=== PATIENT | male | born 1955 | race Caucasian/White ===

== ENCOUNTER 2023-08-13 03:01 | Observation (INO) ==
[2023-08-13] MEDS ORDERED: Albuterol/Ipratropium NEB.SOL (2.5/0.5 MG) 3 ML NEB.SOLN INH ONE (03:05)
[2023-08-13] MEDS ORDERED: Lactated Ringers 1000 ml BAG 1,000 ML IV ONE (03:17)
[2023-08-13 03:20] LABS: ABS Basophils 0.1 10^3/uL (0.0-0.1); ABS Eosinophils 0.2 10^3/uL (0.0-0.5); ABS Lymphocytes 2.6 10^3/uL (1.0-4.8); ABS Monocytes 0.9 10^3/uL (0.0-1.1); ABS Nucleated RBC 0.02 10^3/ul; Eosinophil % 2.7 %; Hematocrit 50.8 % (38-53); Hemoglobin 16.7 g/dL (13.2-16.3); Lymphocyte % 29.4 %; Mean Corpuscular Hemoglobin 29.4 pg (27-33); Mean Corpuscular Hgb Conc 32.8 g/dL (31-36); Mean Corpuscular Volume 89.4 fL (80-97); Mean Platelet Volume 8.5 fL (7.5-11.2); Nucleated Red Blood Cells % 0.2 %/100WBC (0.0-0.8); Platelet Count 257 10^3/uL (150-450); Red Blood Count 5.68 10^6/uL (4.06-5.63); Red Cell Distribution Width 16.5 % (12-17); White Blood Count 8.7 10^3/uL (3.6-10.2)
[2023-08-13 03:37] LABS: Albumin 4.1 g/dL (3.2-5.2); Albumin/Globulin Ratio 1.3 (1-3); C Reactive Protein 10.94 mg/L (<8.01); Calcium 9.3 mg/dL (8.6-10.3); Creatinine, Serum 1.4 mg/dL (0.67-1.17); Globulin 3.2 g/dL (2-4); Magnesium 2.1 mg/dL (1.9-2.7); Potassium 4.2 mmol/L (3.5-5.0); Total Bilirubin 0.7 mg/dL (0.2-1.0); Total Protein 7.3 g/dL (6.4-8.9); eGFR CKD-EPI 54.4 (>60)
[2023-08-13 03:38] LABS: PCO2 Arterial 47 mmHg (35-45); PO2 Arterial 66 mmHg (80-100)
[2023-08-13] MEDS ORDERED: Albuterol/Ipratropium NEB.SOL (2.5/0.5 MG) 3 ML NEB.SOLN ONE (04:29)
[2023-08-13 05:36] LABS: Urine Appearance Clear; Urine Bilirubin Negative (Negative); Urine Blood Negative (Negative); Urine Color Yellow; Urine Glucose Negative (Negative); Urine Ketones Negative (Negative); Urine Nitrite Negative (Negative); Urine Protein 2+(100 mg/dL) (Negative); Urine Urobilinogen Negative (Negative)
[2023-08-13 05:45] LABS: Urine Benzodiazepine Screen None Detected (None Detect); Urine Cannabinoids Screen None Detected (None Detect); Urine Opiates Screen None Detected (None Detect)
[2023-08-13 05:46] LABS: Urine Bacteria Absent (Absent); Urine Red Blood Cell Trace(0-2/hpf) (Absent); Urine Squamous Epithelial Cell Present (Absent); Urine White Blood Cell Trace(0-5/hpf) (Absent)
[2023-08-13] MEDS ORDERED: Ondansetron 4 mg VIAL 2 MG/ML 2 ml VIAL IV PRN (06:28)
[2023-08-13] MEDS ORDERED: Carboxymethylcellulose/Glyceri 10 ML OPHTH.GEL lubricant eye gel BOTH EYES PRN (06:44)
[2023-08-13] MEDS ORDERED: Albuterol HFA INHALER 8 gm MDI INH PRN (06:44)
[2023-08-13 07:54] LABS: Phosphorus 4.9 mg/dL (2.5-5.0)
[2023-08-13] MEDS: SPIRIVA Respimat (tiotropium) 2.5 mcg/inh Inhaler INH SCH (08:44)
[2023-08-13] MEDS: Vitamin THERAPEUTIC TAB PO SCH (08:44)
[2023-08-13] MEDS: Mometasone/Formoter 200/5 MDI INH SCH ×2 (08:45→19:48)
[2023-08-13] MEDS: MAGNESIUM 250 MG PO SCH (08:51)
[2023-08-13] MEDS: CMC:OMEGA-3 FATTY ACID 1000 mg(NF) PO SCH (08:56)
[2023-08-13] MEDS ORDERED: Azelastine 0.1% Nasal (NF) 30 ML BTL BOTH NARES SCH (09:00)
[2023-08-13] MEDS ORDERED: NF:IPRATROPIUM BR (NF)0.06% NASAL 1 SPRAY BTL BOTH NARES SCH (09:00)
[2023-08-13] MEDS ORDERED: CMC:OMEGA-3 FATTY ACID 1000 mg(NF) PO SCH (09:00)
[2023-08-13] MEDS ORDERED: Piperacillin/Tazobac 3.375 BAG 3.375 GM/100 ML BAG IV ONE ×2 (10:52→13:59)
[2023-08-13] MEDS ORDERED: Zosyn per Pharmacy NOTE FOLLOW UP SCH (11:00)
[2023-08-13] MEDS ORDERED: cefTRIAXone 1 gm/50 mL D5W 1 GM/50 ML BAG IV SCH (14:00)
[2023-08-13] MEDS ORDERED: Azithromycin 500 mg/250 ml NS 500 MG/250 ML BAG IVPB SCH (14:00)
[2023-08-13 14:45] LABS: ABS Eosinophils 0.1 10^3/uL (0.0-0.5); ABS Lymphocytes 1.6 10^3/uL (1.0-4.8); ABS Monocytes 1.1 10^3/uL (0.0-1.1); ABS Nucleated RBC 0.02 10^3/ul; Eosinophil % 1.4 %; Hematocrit 47.2 % (38-53); Lymphocyte % 18.1 %; Mean Corpuscular Hemoglobin 29.9 pg (27-33); Mean Corpuscular Hgb Conc 33.8 g/dL (31-36); Mean Corpuscular Volume 88.5 fL (80-97); Mean Platelet Volume 8.4 fL (7.5-11.2); Nucleated Red Blood Cells % 0.2 %/100WBC (0.0-0.8); Platelet Count 237 10^3/uL (150-450); Red Blood Count 5.33 10^6/uL (4.06-5.63); Red Cell Distribution Width 16.5 % (12-17); White Blood Count 8.9 10^3/uL (3.6-10.2)
[2023-08-13 15:00] LABS: Calcium 9.6 mg/dL (8.6-10.3); Creatinine, Serum 1.29 mg/dL (0.67-1.17); Potassium 3.9 mmol/L (3.5-5.0)
[2023-08-13 16:29] LABS: High Sensitivity Troponin 1 Hr 24 pg/mL (<20)
[2023-08-13] MEDS ORDERED: ZOSYN 3.375 GM Q8H per EXTENDED INFUSION IV SCH (16:30)
[2023-08-13] MEDS ORDERED: Dextrose 50% Syringe 50 ml 25 GM/50 ML SYRINGE IV PUSH PRN (17:00)
[2023-08-13] MEDS: ZOSYN 3.375 GM Q8H per EXTENDED INFUSION IV SCH (17:47)
[2023-08-13] MEDS ORDERED: Simvastatin 20 mg TAB (NF) PO SCH (21:00)
[2023-08-14] MEDS: ZOSYN 3.375 GM Q8H per EXTENDED INFUSION IV SCH ×2 (00:51→11:33)
[2023-08-14 05:51] LABS: PCO2 Arterial 42 mmHg (35-45); PO2 Arterial 70 mmHg (80-100)
[2023-08-14 07:27] LABS: ABS Basophils 0.1 10^3/uL (0.0-0.1); ABS Eosinophils 0.2 10^3/uL (0.0-0.5); ABS Lymphocytes 1.5 10^3/uL (1.0-4.8); ABS Monocytes 0.8 10^3/uL (0.0-1.1); ABS Neutrophils 5.8 10^3/uL (1.5-7.6); ABS Nucleated RBC 0.02 10^3/ul; Eosinophil % 2.4 %; Hematocrit 46.6 % (38-53); Hemoglobin 15.5 g/dL (13.2-16.3); Lymphocyte % 18.2 %; Mean Corpuscular Hemoglobin 29.6 pg (27-33); Mean Corpuscular Hgb Conc 33.2 g/dL (31-36); Mean Corpuscular Volume 89.1 fL (80-97); Mean Platelet Volume 8.7 fL (7.5-11.2); Nucleated Red Blood Cells % 0.2 %/100WBC (0.0-0.8); Platelet Count 221 10^3/uL (150-450); Red Blood Count 5.23 10^6/uL (4.06-5.63); Red Cell Distribution Width 16.6 % (12-17); White Blood Count 8.4 10^3/uL (3.6-10.2)
[2023-08-14] MEDS: MAGNESIUM 250 MG PO SCH (07:39)
[2023-08-14 07:43] LABS: Calcium 9.2 mg/dL (8.6-10.3); Creatinine, Serum 1.33 mg/dL (0.67-1.17); Potassium 3.9 mmol/L (3.5-5.0); eGFR CKD-EPI 57.9 (>60)
[2023-08-14] MEDS: CMC:OMEGA-3 FATTY ACID 1000 mg(NF) PO SCH (08:07)
[2023-08-14] MEDS: Vitamin THERAPEUTIC TAB PO SCH (08:08)
[2023-08-14] MEDS: Mometasone/Formoter 200/5 MDI INH SCH (08:11)
[2023-08-14] MEDS: SPIRIVA Respimat (tiotropium) 2.5 mcg/inh Inhaler INH SCH (08:12)
[2023-08-14] MEDS ORDERED: Regadenoson 0.4 MG/5 ML SYRINGE ONE (08:33)
[2023-08-14] MEDS ORDERED: Aminophylline 25 MG/ML VIAL ONE (08:33)
[2023-08-14] MEDS ORDERED: LORazepam 2 mg VIAL 1 ml ONE (08:51)
[2023-08-14] MEDS ORDERED: NS 0.9% 1000 ml BAG 1,000 ML IV SCH ×2 (09:00→10:45)
[2023-08-14] MEDS ORDERED: Sulfur Hexaflouride MICROSPHR 25 MG VIAL ONE (09:08)
[2023-08-14 13:38] VITALS: BP 143/76
== END 2023-08-14 15:00 | disposition left against medical advice (07) ==
LOC: EDHOLD 03:01 → ED 03:01 → SUATTDRO 06:28 → MED 14:41
PROVIDERS: ADMIT Student in an Organized Health Care Education/Training Program; ATTEND Internal Medicine

== ENCOUNTER 2023-09-18 09:51 | Inpatient (IN) ==
[~2023-09-18 09:51] MED LIST: EPINEPHrine SYR 0.1MG/ML 10 ml SYRINGE IV ONE; Magnesium Sulfate 2 gm BAG 2 GM/50 ML ONE; Norepinephrine IV 1 MG/ML 4 ML VIAL ONE
[2023-09-18 10:10] LABS: Hematocrit 49.8 % (38-53); Hemoglobin 15.1 g/dL (13.2-16.3); Mean Corpuscular Hgb Conc 30.3 g/dL (31-36); Mean Platelet Volume 9.4 fL (7.5-11.2); Platelet Count 205 10^3/uL (150-450); Red Blood Count 5.03 10^6/uL (4.06-5.63); White Blood Count 12.2 10^3/uL (3.6-10.2)
[2023-09-18] MEDS ORDERED: Norepinephrine 4 MG/250mL D5W 4,000 MCG/250 ML BAG IV ONE (10:10)
[2023-09-18 10:21] LABS: PO2 Arterial 89 mmHg (80-100)
[2023-09-18 10:26] LABS: PCO2 Arterial > 100 mmHg (35-45)
[2023-09-18] MEDS ORDERED: Sodium Bicarbonate 8.4% SYR 50 ml SYRINGE ONE (10:26)
[2023-09-18 10:30] LABS: Albumin 3.6 g/dL (3.2-5.2); Albumin/Globulin Ratio 1.4 (1-3); Calcium 11.5 mg/dL (8.6-10.3); Creatinine, Serum 1.46 mg/dL (0.67-1.17); Globulin 2.6 g/dL (2-4); Total Bilirubin 0.5 mg/dL (0.2-1.0); Total Protein 6.2 g/dL (6.4-8.9); eGFR CKD-EPI 51.7 (>60)
[2023-09-18] MEDS ORDERED: Propofol 10 mg/ml 100 ML BTL 1,000 MG/100 ML BTL ONE (10:37)
[2023-09-18] MEDS ORDERED: Iodixanol (CONTRAST) 320 MG/ML 100 ML SDV IV ONE (11:19)
[2023-09-18] MEDS ORDERED: Lactated Ringers 1000 ml BAG 1,000 ML IV ONE ×2 (11:20→11:21)
[2023-09-18] MEDS ORDERED: Piperacillin/Tazobac 3.375 BAG 3.375 GM/100 ML BAG IV ONE (11:20)
[2023-09-18 11:21] LABS: ABS Basophils 0.1 10^3/uL (0.0-0.1); ABS Eosinophils 0.2 10^3/uL (0.0-0.5); ABS Lymphocytes 6.3 10^3/uL (1.0-4.8); ABS Monocytes 0.9 10^3/uL (0.0-1.1); ABS Neutrophils 4.8 10^3/uL (1.5-7.6); ABS Nucleated RBC 0.09 10^3/ul; Eosinophil % 1.5 %; Lymphocyte % 51.3 %; Nucleated Red Blood Cells % 0.8 %/100WBC (0.0-0.8)
[2023-09-18 11:22] LABS: RBC Morphology Normal (Normal)
[2023-09-18 11:24] LABS: Urine Appearance Cloudy; Urine Bilirubin Negative (Negative); Urine Blood 1+ (Negative); Urine Color Yellow; Urine Glucose 3+(>=500 mg/dL) (Negative); Urine Ketones Negative (Negative); Urine Nitrite Negative (Negative); Urine Protein 3+(>=500 mg/dL) (Negative); Urine Specific Gravity 1.008 (1.002-1.030); Urine Urobilinogen Negative (Negative)
[2023-09-18] MEDS: Norepinephrine 16MCG/ML IVPREMIX 4,000 MCG/250 ML D5W BAG IV SCH ×2 (12:15→15:37)
[2023-09-18] MEDS: Propofol 10 mg/ml 100 ML BTL 1,000 MG/100 ML BTL IV SCH ×4 (12:30→23:43)
[2023-09-18 12:45] LABS: PCO2 Arterial 58 mmHg (35-45); PO2 Arterial 82 mmHg (80-100)
[2023-09-18 12:46] LABS: ABS Basophils 0.1 10^3/uL (0.0-0.1); ABS Eosinophils 0.1 10^3/uL (0.0-0.5); ABS Lymphocytes 1.6 10^3/uL (1.0-4.8); ABS Monocytes 0.6 10^3/uL (0.0-1.1); ABS Nucleated RBC 0.02 10^3/ul; Eosinophil % 0.4 %; Hematocrit 46.2 % (38-53); Hemoglobin 14.9 g/dL (13.2-16.3); Lymphocyte % 10.6 %; Mean Corpuscular Hemoglobin 29.2 pg (27-33); Mean Corpuscular Hgb Conc 32.2 g/dL (31-36); Mean Corpuscular Volume 90.6 fL (80-97); Mean Platelet Volume 8.8 fL (7.5-11.2); Nucleated Red Blood Cells % 0.1 %/100WBC (0.0-0.8); Platelet Count 283 10^3/uL (150-450); Red Cell Distribution Width 15.5 % (12-17); White Blood Count 15.3 10^3/uL (3.6-10.2)
[2023-09-18 12:54] LABS: Urine Bacteria 2+ (Absent); Urine Red Blood Cell 3+(>10/hpf) (Absent); Urine Squamous Epithelial Cell Present (Absent); Urine White Blood Cell 1+(6-10/hpf) (Absent)
[2023-09-18 13:00] LABS: Albumin 3.5 g/dL (3.2-5.2); Albumin/Globulin Ratio 1.3 (1-3); Calcium 8.7 mg/dL (8.6-10.3); Creatinine, Serum 1.69 mg/dL (0.67-1.17); Globulin 2.6 g/dL (2-4); Magnesium 2.6 mg/dL (1.9-2.7); Potassium 4.4 mmol/L (3.5-5.0); Total Bilirubin 0.5 mg/dL (0.2-1.0); Total Protein 6.1 g/dL (6.4-8.9); eGFR CKD-EPI 43.4 (>60)
[2023-09-18 13:07] LABS: High Sensitivity Troponin 1 Hr 302 pg/mL (<20)
[2023-09-18] MEDS: Pantoprazole VIAL 40 MG VIAL IV SCH ×2 (13:11→19:14)
[2023-09-18] MEDS ORDERED: Dextrose 50% Syringe 50 ml 25 GM/50 ML SYRINGE IV PUSH PRN (13:30)
[2023-09-18] MEDS ORDERED: Norepinephrine 4 MG/250mL D5W 4,000 MCG/250 ML BAG IV SCH ×2 (14:00)
[2023-09-18] MEDS ORDERED: Norepinephrine 4 MG/250mL NS 4,000 MCG/250 ML BAG IV SCH (14:00)
[2023-09-18 15:31] LABS: High Sensitivity Troponin 3 Hr 870 pg/mL (<20)
[2023-09-18] MEDS ORDERED: Zosyn per Pharmacy NOTE FOLLOW UP SCH (16:00)
[2023-09-18 19:58] LABS: Hematocrit 46.7 % (38-53); Hemoglobin 15.5 g/dL (13.2-16.3); Mean Corpuscular Hemoglobin 29.5 pg (27-33); Mean Corpuscular Hgb Conc 33.2 g/dL (31-36); Mean Corpuscular Volume 88.7 fL (80-97); Mean Platelet Volume 8.7 fL (7.5-11.2); Platelet Count 265 10^3/uL (150-450); Red Blood Count 5.27 10^6/uL (4.06-5.63); Red Cell Distribution Width 15.5 % (12-17); White Blood Count 17.8 10^3/uL (3.6-10.2)
[2023-09-18 20:34] LABS: ABS Lymphocytes 0.5 10^3/uL (1.0-4.8); ABS Monocytes 1.5 10^3/uL (0.0-1.1); ABS Neutrophils 15.8 10^3/uL (1.5-7.6); ABS Nucleated RBC 0.02 10^3/ul; Eosinophil % 0.1 %; Lymphocyte % 2.9 %; Nucleated Red Blood Cells % 0.1 %/100WBC (0.0-0.8); RBC Morphology Normal (Normal)
[2023-09-18 20:42] LABS: Albumin 3.7 g/dL (3.2-5.2); Albumin/Globulin Ratio 1.4 (1-3); Calcium 8.7 mg/dL (8.6-10.3); Creatinine, Serum 2.1 mg/dL (0.67-1.17); Globulin 2.6 g/dL (2-4); Potassium 3.7 mmol/L (3.5-5.0); Total Bilirubin 0.8 mg/dL (0.2-1.0); Total Protein 6.3 g/dL (6.4-8.9); eGFR CKD-EPI 33.4 (>60)
[2023-09-18] MEDS: ZOSYN 3.375 GM Q8H per EXTENDED INFUSION IV SCH (22:03)
[2023-09-18] MEDS ORDERED: Lactated Ringers 1000 ml BAG 1,000 ML IV SCH (23:00)
[2023-09-18] MEDS: Acetaminophen IV 1 GM/100ML 1,000 MG/100 ML BAG IV PRN (23:11)
[2023-09-19] MEDS: Propofol 10 mg/ml 100 ML BTL 1,000 MG/100 ML BTL IV SCH ×6 (03:28→22:59)
[2023-09-19] MEDS: Chlorhexidine MOUTHWASH 0.12% 15 ML UDC TOPICAL SCH ×6 (03:33→22:02)
[2023-09-19 03:57] LABS: Albumin 3.4 g/dL (3.2-5.2); Albumin/Globulin Ratio 1.4 (1-3); Calcium 8.5 mg/dL (8.6-10.3); Creatinine, Serum 2.88 mg/dL (0.67-1.17); Globulin 2.4 g/dL (2-4); Magnesium 2.2 mg/dL (1.9-2.7); Total Bilirubin 0.8 mg/dL (0.2-1.0); Total Protein 5.8 g/dL (6.4-8.9); eGFR CKD-EPI 22.9 (>60)
[2023-09-19 04:27] LABS: Urine Benzodiazepine Screen None Detected (None Detect); Urine Cannabinoids Screen None Detected (None Detect); Urine Opiates Screen None Detected (None Detect)
[2023-09-19 04:40] LABS: ABS Lymphocytes 0.8 10^3/uL (1.0-4.8); ABS Monocytes 1.5 10^3/uL (0.0-1.1); ABS Neutrophils 13.4 10^3/uL (1.5-7.6); ABS Nucleated RBC 0.01 10^3/ul; Hematocrit 44.3 % (38-53); Hemoglobin 14.6 g/dL (13.2-16.3); Lymphocyte % 5.2 %; Mean Corpuscular Hemoglobin 29.2 pg (27-33); Mean Corpuscular Hgb Conc 32.9 g/dL (31-36); Mean Corpuscular Volume 88.8 fL (80-97); Mean Platelet Volume 8.9 fL (7.5-11.2); Nucleated Red Blood Cells % 0.1 %/100WBC (0.0-0.8); Platelet Count 209 10^3/uL (150-450); Red Blood Count 4.99 10^6/uL (4.06-5.63); Red Cell Distribution Width 15.5 % (12-17); White Blood Count 15.8 10^3/uL (3.6-10.2)
[2023-09-19] MEDS: ZOSYN 3.375 GM Q8H per EXTENDED INFUSION IV SCH ×3 (05:14→19:37)
[2023-09-19] MEDS ORDERED: Propofol 10 mg/ml 100 ML BTL 1,000 MG/100 ML BTL ONE (07:46)
[2023-09-19] MEDS: Pantoprazole VIAL 40 MG VIAL IV SCH ×2 (07:56→19:31)
[2023-09-19] MEDS: Heparin 5000 UNITS/ML 1 mL VIAL SUBCUT SCH ×2 (14:52→22:02)
[2023-09-19] MEDS: HYDROmorphone 0.5 MG/0.5 ML SYRINGE IV SLOW PU PRN (19:31)
[2023-09-20] MEDS: Norepinephrine 16MCG/ML IVPREMIX 4,000 MCG/250 ML D5W BAG IV SCH ×3 (00:06→16:32)
[2023-09-20] MEDS: HYDROmorphone 0.5 MG/0.5 ML SYRINGE IV SLOW PU PRN ×3 (01:36→10:22)
[2023-09-20] MEDS: Propofol 10 mg/ml 100 ML BTL 1,000 MG/100 ML BTL IV SCH ×10 (01:36→22:51)
[2023-09-20] MEDS: Acetaminophen IV 1 GM/100ML 1,000 MG/100 ML BAG IV PRN ×2 (01:36→13:39)
[2023-09-20] MEDS: Chlorhexidine MOUTHWASH 0.12% 15 ML UDC TOPICAL SCH ×6 (02:51→21:50)
[2023-09-20] MEDS: ZOSYN 3.375 GM Q8H per EXTENDED INFUSION IV SCH ×2 (04:03→11:57)
[2023-09-20] MEDS: Heparin 5000 UNITS/ML 1 mL VIAL SUBCUT SCH ×3 (04:04→21:50)
[2023-09-20 04:36] LABS: Hematocrit 41.2 % (38-53); Hemoglobin 13.7 g/dL (13.2-16.3); Mean Corpuscular Hemoglobin 29.5 pg (27-33); Mean Corpuscular Hgb Conc 33.4 g/dL (31-36); Mean Corpuscular Volume 88.4 fL (80-97); Mean Platelet Volume 8.8 fL (7.5-11.2); Platelet Count 236 10^3/uL (150-450); Red Blood Count 4.66 10^6/uL (4.06-5.63); Red Cell Distribution Width 15.6 % (12-17); White Blood Count 16.6 10^3/uL (3.6-10.2)
[2023-09-20 04:41] LABS: ABS Lymphocytes 1.3 10^3/uL (1.0-4.8); ABS Monocytes 1.9 10^3/uL (0.0-1.1); ABS Neutrophils 13.3 10^3/uL (1.5-7.6); ABS Nucleated RBC 0.01 10^3/ul; Eosinophil % 0.2 %
[2023-09-20 04:59] LABS: Albumin 3.3 g/dL (3.2-5.2); Albumin/Globulin Ratio 1.3 (1-3); Calcium 8.1 mg/dL (8.6-10.3); Creatinine, Serum 4.52 mg/dL (0.67-1.17); Globulin 2.6 g/dL (2-4); Magnesium 2.1 mg/dL (1.9-2.7); Potassium 4.5 mmol/L (3.5-5.0); Total Bilirubin 0.7 mg/dL (0.2-1.0); Total Protein 5.9 g/dL (6.4-8.9); eGFR CKD-EPI 13.3 (>60)
[2023-09-20] MEDS: Pantoprazole VIAL 40 MG VIAL IV SCH ×2 (08:04→21:49)
[2023-09-20 09:53] LABS: PCO2 Arterial 42 mmHg (35-45); PO2 Arterial 97 mmHg (80-100)
[2023-09-20] MEDS: Midazolam 2 mg/2 ml VIAL 1 mg/ml 2 ml VIAL (2 mg) IV SLOW PU PRN (22:51)
[2023-09-21] MEDS: Chlorhexidine MOUTHWASH 0.12% 15 ML UDC TOPICAL SCH ×6 (00:48→21:35)
[2023-09-21] MEDS: Midazolam 2 mg/2 ml VIAL 1 mg/ml 2 ml VIAL (2 mg) IV SLOW PU PRN ×3 (00:53→07:31)
[2023-09-21] MEDS: HYDROmorphone 0.5 MG/0.5 ML SYRINGE IV SLOW PU PRN ×2 (00:53→07:31)
[2023-09-21] MEDS: Propofol 10 mg/ml 100 ML BTL 1,000 MG/100 ML BTL IV SCH ×3 (01:11→05:53)
[2023-09-21] MEDS: ZOSYN 3.375 GM Q12H per EXTENDED INFUSION IV SCH ×2 (01:24→12:03)
[2023-09-21] MEDS: Norepinephrine 16MCG/ML IVPREMIX 4,000 MCG/250 ML D5W BAG IV SCH (04:58)
[2023-09-21 05:48] LABS: Mean Corpuscular Hemoglobin 29.4 pg (27-33); Mean Corpuscular Hgb Conc 33.3 g/dL (31-36); Mean Corpuscular Volume 88.5 fL (80-97); Mean Platelet Volume 8.6 fL (7.5-11.2); Platelet Count 223 10^3/uL (150-450); Red Cell Distribution Width 15.9 % (12-17); White Blood Count 15.8 10^3/uL (3.6-10.2)
[2023-09-21] MEDS: Heparin 5000 UNITS/ML 1 mL VIAL SUBCUT SCH ×3 (05:53→21:36)
[2023-09-21 06:03] LABS: Albumin 3.2 g/dL (3.2-5.2); Albumin/Globulin Ratio 1.1 (1-3); Calcium 7.9 mg/dL (8.6-10.3); Creatinine, Serum 6.8 mg/dL (0.67-1.17); Globulin 2.9 g/dL (2-4); Magnesium 2.2 mg/dL (1.9-2.7); Potassium 4.9 mmol/L (3.5-5.0); Total Bilirubin 0.8 mg/dL (0.2-1.0); Total Protein 6.1 g/dL (6.4-8.9); eGFR CKD-EPI 8.2 (>60)
[2023-09-21 07:07] LABS: ABS Eosinophils 0.1 10^3/uL (0.0-0.5); ABS Lymphocytes 1.2 10^3/uL (1.0-4.8); ABS Monocytes 1.7 10^3/uL (0.0-1.1); ABS Neutrophils 12.8 10^3/uL (1.5-7.6); Eosinophil % 0.6 %; Lymphocyte % 7.7 %
[2023-09-21] MEDS: Pantoprazole VIAL 40 MG VIAL IV SCH ×2 (07:31→21:35)
[2023-09-21 13:11] LABS: PCO2 Arterial 43 mmHg (35-45); PO2 Arterial 150 mmHg (80-100)
[2023-09-21] MEDS ORDERED: NS 0.9% 1000 ml BAG 200 ML IV PRN (18:12)
[2023-09-21] MEDS ORDERED: NS 0.9% 1000 ml BAG 100 ML IV PRN (18:12)
[2023-09-21] MEDS ORDERED: Albumin Human 25% 25 GM/100 ML BTL IV PRN (18:12)
[2023-09-21] MEDS: Artificial Tear OPHTH.OINT 3.5 GM BOTH EYES PRN (19:36)
[2023-09-22] MEDS: ZOSYN 3.375 GM Q12H per EXTENDED INFUSION IV SCH ×2 (00:17→15:24)
[2023-09-22] MEDS: Chlorhexidine MOUTHWASH 0.12% 15 ML UDC TOPICAL SCH ×6 (01:37→20:46)
[2023-09-22] MEDS: Acetaminophen IV 1 GM/100ML 1,000 MG/100 ML BAG IV PRN ×2 (01:37→16:32)
[2023-09-22] MEDS ORDERED: Metoprolol Tartrate 5 mg VIAL 5 ml VIAL (1 mg/ml) IV ONE (02:23)
[2023-09-22] MEDS: Midazolam 2 mg/2 ml VIAL 1 mg/ml 2 ml VIAL (2 mg) IV SLOW PU PRN (03:53)
[2023-09-22] MEDS: HYDROmorphone 0.5 MG/0.5 ML SYRINGE IV SLOW PU PRN (03:53)
[2023-09-22 05:23] LABS: Hematocrit 36.7 % (38-53); Hemoglobin 12.3 g/dL (13.2-16.3); Mean Corpuscular Hemoglobin 29.4 pg (27-33); Mean Corpuscular Hgb Conc 33.4 g/dL (31-36); Mean Corpuscular Volume 88.2 fL (80-97); Mean Platelet Volume 8.1 fL (7.5-11.2); Platelet Count 208 10^3/uL (150-450); Red Blood Count 4.16 10^6/uL (4.06-5.63); Red Cell Distribution Width 15.6 % (12-17); White Blood Count 14.6 10^3/uL (3.6-10.2)
[2023-09-22 05:28] LABS: INR 1.09 (0.83-1.13)
[2023-09-22 06:04] LABS: Albumin 3.1 g/dL (3.2-5.2); Calcium 7.5 mg/dL (8.6-10.3); Creatinine, Serum 9.09 mg/dL (0.67-1.17); Globulin 3.2 g/dL (2-4); Potassium 6.3 mmol/L (3.5-5.0); Total Bilirubin 0.7 mg/dL (0.2-1.0); Total Protein 6.3 g/dL (6.4-8.9); eGFR CKD-EPI 5.8 (>60)
[2023-09-22] MEDS ORDERED: SODIUM ZIRCONIUM CYCLOSILICATE 10 GM PACKET PO ONE (06:05)
[2023-09-22] MEDS ORDERED: CALCIUM GLUCONATE 1GM/50ML NS 1 GM/50 ML BAG IV ONE (06:06)
[2023-09-22] MEDS: Heparin 5000 UNITS/ML 1 mL VIAL SUBCUT SCH (06:12)
[2023-09-22] MEDS ORDERED: Dextrose 50% Syringe 50 ml 25 GM/50 ML SYRINGE IV PUSH ONE (06:23)
[2023-09-22 06:57] LABS: ABS Lymphocytes 0.7 10^3/uL (1.0-4.8); ABS Monocytes 1.2 10^3/uL (0.0-1.1); ABS Neutrophils 12.7 10^3/uL (1.5-7.6); ABS Nucleated RBC 0.01 10^3/ul; Eosinophil % 0.1 %; Lymphocyte % 4.8 %; Nucleated Red Blood Cells % 0.1 %/100WBC (0.0-0.8)
[2023-09-22] MEDS: Pantoprazole VIAL 40 MG VIAL IV SCH ×2 (08:02→20:45)
[2023-09-22] MEDS: Heparin 1,000 UNIT/ML 10 ml (10,000 UNITS) CATHLAB/DIALYSIS DIALYSIS PRN ×7 (09:15→15:07)
[2023-09-22 15:01] LABS: Hepatitis B Surface Antigen Nonreactive (Nonreactive)
[2023-09-22 15:18] LABS: Hepatitis B Surface Ab Not Immune (Immune)
[2023-09-22] MEDS: Metoprolol Tartrate 5 mg VIAL 5 ml VIAL (1 mg/ml) IV PRN ×2 (15:36→21:39)
[2023-09-22] MEDS: Artificial Tear OPHTH.OINT 3.5 GM BOTH EYES PRN (17:16)
[2023-09-22 19:50] LABS: Calcium 7.8 mg/dL (8.6-10.3); Creatinine, Serum 6.52 mg/dL (0.67-1.17); Potassium 4.9 mmol/L (3.5-5.0); eGFR CKD-EPI 8.6 (>60)
[2023-09-23] MEDS: ZOSYN 3.375 GM Q12H per EXTENDED INFUSION IV SCH ×2 (00:39→13:11)
[2023-09-23] MEDS: HYDROmorphone 0.5 MG/0.5 ML SYRINGE IV SLOW PU PRN ×3 (02:51→23:13)
[2023-09-23] MEDS: Chlorhexidine MOUTHWASH 0.12% 15 ML UDC TOPICAL SCH ×6 (02:51→20:07)
[2023-09-23] MEDS: Metoprolol Tartrate 5 mg VIAL 5 ml VIAL (1 mg/ml) IV PRN ×4 (03:08→23:28)
[2023-09-23 04:26] LABS: Hematocrit 37.1 % (38-53); Hemoglobin 12.4 g/dL (13.2-16.3); Mean Corpuscular Hemoglobin 29.4 pg (27-33); Mean Corpuscular Hgb Conc 33.3 g/dL (31-36); Mean Corpuscular Volume 88.3 fL (80-97); Mean Platelet Volume 7.7 fL (7.5-11.2); Platelet Count 235 10^3/uL (150-450); Red Blood Count 4.21 10^6/uL (4.06-5.63); Red Cell Distribution Width 15.8 % (12-17); White Blood Count 14.4 10^3/uL (3.6-10.2)
[2023-09-23 04:44] LABS: Albumin 3.2 g/dL (3.2-5.2); Creatinine, Serum 7.38 mg/dL (0.67-1.17); Globulin 3.2 g/dL (2-4); Potassium 5.2 mmol/L (3.5-5.0); Total Bilirubin 0.7 mg/dL (0.2-1.0); Total Protein 6.4 g/dL (6.4-8.9); eGFR CKD-EPI 7.4 (>60)
[2023-09-23 05:15] LABS: ABS Eosinophils 0.1 10^3/uL (0.0-0.5); ABS Lymphocytes 0.7 10^3/uL (1.0-4.8); ABS Monocytes 1.4 10^3/uL (0.0-1.1); ABS Neutrophils 12.2 10^3/uL (1.5-7.6); ABS Nucleated RBC 0.01 10^3/ul; Eosinophil % 0.6 %; Lymphocyte % 4.6 %
[2023-09-23] MEDS: Acetaminophen IV 1 GM/100ML 1,000 MG/100 ML BAG IV PRN ×2 (05:42→14:15)
[2023-09-23] MEDS: Heparin 1,000 UNIT/ML 10 ml (10,000 UNITS) CATHLAB/DIALYSIS DIALYSIS PRN ×6 (07:20→12:40)
[2023-09-23] MEDS: Pantoprazole VIAL 40 MG VIAL IV SCH ×2 (09:01→20:07)
[2023-09-23] MEDS ORDERED: Metoprolol Tartrate 5 mg VIAL 5 ml VIAL (1 mg/ml) IV ONE (09:17)
[2023-09-23] MEDS: Artificial Tear OPHTH.OINT 3.5 GM BOTH EYES PRN (09:22)
[2023-09-23] MEDS: Midazolam 2 mg/2 ml VIAL 1 mg/ml 2 ml VIAL (2 mg) IV SLOW PU PRN ×2 (17:29→23:13)
[2023-09-23] MEDS ORDERED: Norepinephrine 4 MG/250mL D5W 4,000 MCG/250 ML BAG IV ONE (17:35)
[2023-09-23] MEDS: Norepinephrine 16MCG/ML IVPREMIX 4,000 MCG/250 ML D5W BAG IV SCH (17:38)
[2023-09-23 17:46] LABS: Resp Rate 28
[2023-09-23 17:57] LABS: PCO2 Arterial 50 mmHg (35-45); PO2 Arterial 135 mmHg (80-100)
[2023-09-24] MEDS: ZOSYN 3.375 GM Q12H per EXTENDED INFUSION IV SCH ×2 (00:15→11:55)
[2023-09-24] MEDS: Chlorhexidine MOUTHWASH 0.12% 15 ML UDC TOPICAL SCH ×6 (02:05→20:46)
[2023-09-24] MEDS: HYDROmorphone 0.5 MG/0.5 ML SYRINGE IV SLOW PU PRN ×3 (03:08→16:13)
[2023-09-24] MEDS: Midazolam 2 mg/2 ml VIAL 1 mg/ml 2 ml VIAL (2 mg) IV SLOW PU PRN ×3 (03:09→16:13)
[2023-09-24 04:40] LABS: Hematocrit 39.4 % (38-53); Mean Corpuscular Hemoglobin 29.3 pg (27-33); Mean Corpuscular Hgb Conc 32.9 g/dL (31-36); Mean Corpuscular Volume 89.1 fL (80-97); Mean Platelet Volume 7.9 fL (7.5-11.2); Platelet Count 321 10^3/uL (150-450); Red Blood Count 4.42 10^6/uL (4.06-5.63); Red Cell Distribution Width 15.8 % (12-17); White Blood Count 20.6 10^3/uL (3.6-10.2)
[2023-09-24 04:54] LABS: Calcium 8.4 mg/dL (8.6-10.3); Creatinine, Serum 6.85 mg/dL (0.67-1.17); Potassium 5.8 mmol/L (3.5-5.0); eGFR CKD-EPI 8.1 (>60)
[2023-09-24 05:01] LABS: ABS Basophils 0.2 10^3/uL (0.0-0.1); ABS Eosinophils 0.2 10^3/uL (0.0-0.5); ABS Lymphocytes 0.8 10^3/uL (1.0-4.8); ABS Neutrophils 17.5 10^3/uL (1.5-7.6); Eosinophil % 0.9 %; RBC Morphology Normal (Normal)
[2023-09-24] MEDS: Norepinephrine 16MCG/ML IVPREMIX 4,000 MCG/250 ML D5W BAG IV SCH ×2 (06:01→11:58)
[2023-09-24] MEDS: Pantoprazole VIAL 40 MG VIAL IV SCH ×2 (07:49→20:47)
[2023-09-24] MEDS: Acetaminophen IV 1 GM/100ML 1,000 MG/100 ML BAG IV PRN ×2 (07:49→17:56)
[2023-09-24] MEDS: Albuterol/Ipratropium NEB.SOL (2.5/0.5 MG) 3 ML NEB.SOLN INH SCH ×3 (11:28→20:31)
[2023-09-24] MEDS: Metoprolol Tartrate 5 mg VIAL 5 ml VIAL (1 mg/ml) IV PRN ×2 (15:44→23:40)
[2023-09-25] MEDS: Midazolam 2 mg/2 ml VIAL 1 mg/ml 2 ml VIAL (2 mg) IV SLOW PU PRN (00:10)
[2023-09-25] MEDS: ZOSYN 3.375 GM Q12H per EXTENDED INFUSION IV SCH (00:38)
[2023-09-25] MEDS: Chlorhexidine MOUTHWASH 0.12% 15 ML UDC TOPICAL SCH ×6 (02:04→21:42)
[2023-09-25] MEDS: HYDROmorphone 0.5 MG/0.5 ML SYRINGE IV SLOW PU PRN ×4 (02:52→20:15)
[2023-09-25] MEDS: Metoprolol Tartrate 5 mg VIAL 5 ml VIAL (1 mg/ml) IV PRN ×3 (03:00→20:22)
[2023-09-25 04:14] LABS: Hematocrit 36.1 % (38-53); Hemoglobin 12.1 g/dL (13.2-16.3); Mean Corpuscular Hemoglobin 29.6 pg (27-33); Mean Corpuscular Hgb Conc 33.5 g/dL (31-36); Mean Corpuscular Volume 88.4 fL (80-97); Mean Platelet Volume 7.8 fL (7.5-11.2); Platelet Count 244 10^3/uL (150-450); Red Blood Count 4.08 10^6/uL (4.06-5.63); Red Cell Distribution Width 15.5 % (12-17); White Blood Count 14.6 10^3/uL (3.6-10.2)
[2023-09-25 04:33] LABS: Calcium 8.3 mg/dL (8.6-10.3); Creatinine, Serum 8.63 mg/dL (0.67-1.17); Magnesium 2.5 mg/dL (1.9-2.7); Potassium 5.7 mmol/L (3.5-5.0); eGFR CKD-EPI 6.1 (>60)
[2023-09-25 04:54] LABS: ABS Eosinophils 0.3 10^3/uL (0.0-0.5); ABS Lymphocytes 0.7 10^3/uL (1.0-4.8); ABS Monocytes 1.4 10^3/uL (0.0-1.1); ABS Neutrophils 12.3 10^3/uL (1.5-7.6); ABS Nucleated RBC 0.01 10^3/ul; Eosinophil % 1.8 %; Lymphocyte % 4.9 %
[2023-09-25] MEDS: Albuterol/Ipratropium NEB.SOL (2.5/0.5 MG) 3 ML NEB.SOLN INH SCH ×4 (07:09→21:42)
[2023-09-25] MEDS: Heparin 1,000 UNIT/ML 10 ml (10,000 UNITS) CATHLAB/DIALYSIS DIALYSIS PRN ×5 (07:28→11:55)
[2023-09-25] MEDS: Pantoprazole VIAL 40 MG VIAL IV SCH ×2 (07:47→20:06)
[2023-09-25] MEDS ORDERED: Amiodarone 150 mg IVPREMIX 150 MG/100 ML BAG IV ONE ×2 (08:10→08:14)
[2023-09-25] MEDS ORDERED: .Amiodarone 24HR ONLY IV Protocol Order Note IV ONE (08:14)
[2023-09-25] MEDS ORDERED: Amiodarone 360 MG IVPREMIX 360 MG/200 ML BAG IV SCH (08:30)
[2023-09-25] MEDS ORDERED: Amiodarone IV 150 mg/3 ml VIAL IV SLOW PU ONE ×2 (09:53→12:15)
[2023-09-25] MEDS ORDERED: AMIODARONE 150 MG IV ONE (10:05)
[2023-09-25] MEDS ORDERED: IVPREMIX IV ONE (10:05)
[2023-09-25] MEDS ORDERED: Albumin Human 5% 12.5 GM/250 ML BTL IV ONE (13:26)
[2023-09-25] MEDS ORDERED: PHENYLEPHRINE DRIP IVPREMIX 50 MG/250 ML BAG IV SCH (14:00)
[2023-09-25] MEDS: Amiodarone 360 MG IVPREMIX 360 MG/200 ML BAG IV SCH (14:45)
[2023-09-25] MEDS: Acetaminophen IV 1 GM/100ML 1,000 MG/100 ML BAG IV PRN ×2 (15:11→22:25)
[2023-09-26] MEDS: Chlorhexidine MOUTHWASH 0.12% 15 ML UDC TOPICAL SCH ×6 (01:43→20:18)
[2023-09-26] MEDS: Amiodarone 360 MG IVPREMIX 360 MG/200 ML BAG IV SCH (03:45)
[2023-09-26 04:09] LABS: Hematocrit 34.9 % (38-53); Hemoglobin 11.5 g/dL (13.2-16.3); Mean Corpuscular Volume 88.1 fL (80-97); Mean Platelet Volume 7.9 fL (7.5-11.2); Platelet Count 310 10^3/uL (150-450); Red Blood Count 3.96 10^6/uL (4.06-5.63); Red Cell Distribution Width 15.6 % (12-17); White Blood Count 15.3 10^3/uL (3.6-10.2)
[2023-09-26 04:27] LABS: Calcium 8.2 mg/dL (8.6-10.3); Creatinine, Serum 7.78 mg/dL (0.67-1.17); Potassium 5.3 mmol/L (3.5-5.0); eGFR CKD-EPI 6.9 (>60)
[2023-09-26 04:34] LABS: ABS Basophils 0.1 10^3/uL (0.0-0.1); ABS Eosinophils 0.3 10^3/uL (0.0-0.5); ABS Lymphocytes 0.8 10^3/uL (1.0-4.8); ABS Monocytes 1.3 10^3/uL (0.0-1.1); ABS Neutrophils 12.8 10^3/uL (1.5-7.6); ABS Nucleated RBC 0.02 10^3/ul; Eosinophil % 2.2 %; Lymphocyte % 5.4 %; Nucleated Red Blood Cells % 0.1 %/100WBC (0.0-0.8); RBC Morphology Normal (Normal)
[2023-09-26] MEDS: Metoprolol Tartrate 5 mg VIAL 5 ml VIAL (1 mg/ml) IV PRN ×4 (04:47→20:46)
[2023-09-26] MEDS: Acetaminophen IV 1 GM/100ML 1,000 MG/100 ML BAG IV PRN ×3 (06:25→20:09)
[2023-09-26] MEDS: Pantoprazole VIAL 40 MG VIAL IV SCH ×2 (07:06→20:14)
[2023-09-26] MEDS: Albuterol/Ipratropium NEB.SOL (2.5/0.5 MG) 3 ML NEB.SOLN INH SCH (08:01)
[2023-09-26] MEDS ORDERED: Albuterol/Ipratropium NEB.SOL (2.5/0.5 MG) 3 ML NEB.SOLN INH PRN (08:04)
[2023-09-26] MEDS: HYDROmorphone 0.5 MG/0.5 ML SYRINGE IV SLOW PU PRN (09:40)
[2023-09-26] MEDS: cefTRIAXone 1 gm/50 mL D5W 1 GM/50 ML BAG IV SCH (09:54)
[2023-09-26] MEDS: Amiodarone 400 mg TAB PO SCH ×2 (10:57→20:14)
[2023-09-27 00:09] VITALS: BP 121/79
[2023-09-27] MEDS: HYDROmorphone 0.5 MG/0.5 ML SYRINGE IV SLOW PU PRN ×2 (00:16→03:59)
[2023-09-27] MEDS: Chlorhexidine MOUTHWASH 0.12% 15 ML UDC TOPICAL SCH ×3 (01:30→09:26)
[2023-09-27] MEDS: Acetaminophen IV 1 GM/100ML 1,000 MG/100 ML BAG IV PRN (03:58)
[2023-09-27 04:19] LABS: ABS Eosinophils 0.2 10^3/uL (0.0-0.5); ABS Lymphocytes 0.7 10^3/uL (1.0-4.8); ABS Monocytes 0.8 10^3/uL (0.0-1.1); ABS Neutrophils 16.4 10^3/uL (1.5-7.6); ABS Nucleated RBC 0.01 10^3/ul; Eosinophil % 1.3 %; Hematocrit 36.3 % (38-53); Hemoglobin 12.1 g/dL (13.2-16.3); Lymphocyte % 3.8 %; Mean Corpuscular Hemoglobin 29.6 pg (27-33); Mean Corpuscular Hgb Conc 33.3 g/dL (31-36); Mean Corpuscular Volume 88.9 fL (80-97); Mean Platelet Volume 8.3 fL (7.5-11.2); Platelet Count 335 10^3/uL (150-450); Red Blood Count 4.08 10^6/uL (4.06-5.63); Red Cell Distribution Width 15.8 % (12-17); White Blood Count 18.2 10^3/uL (3.6-10.2)
[2023-09-27 05:29] LABS: Calcium 8.4 mg/dL (8.6-10.3); Creatinine, Serum 9.4 mg/dL (0.67-1.17); Magnesium 2.7 mg/dL (1.9-2.7); Potassium 6.4 mmol/L (3.5-5.0); eGFR CKD-EPI 5.5 (>60)
[2023-09-27] MEDS ORDERED: CALCIUM GLUCONATE 1GM/50ML NS 1 GM/50 ML BAG IV ONE (05:33)
[2023-09-27] MEDS ORDERED: SODIUM ZIRCONIUM CYCLOSILICATE 10 GM PACKET PO ONE (05:33)
[2023-09-27] MEDS: Pantoprazole VIAL 40 MG VIAL IV SCH (08:57)
[2023-09-27] MEDS: Amiodarone 400 mg TAB PO SCH (08:57)
[2023-09-27] MEDS: cefTRIAXone 1 gm/50 mL D5W 1 GM/50 ML BAG IV SCH (08:58)
[2023-09-27] MEDS ORDERED: Lorazepam PYXIS KEY PRN (09:54)
[2023-09-27] MEDS ORDERED: LORazepam 2 mg VIAL 1 ml IV PUSH PRN (09:54)
[2023-09-27] MEDS ORDERED: Morphine 10 MG/ML VIAL (1 ml) IV ONE ×2 (10:00→14:19)
[2023-09-27] MEDS ORDERED: LORazepam 2 mg VIAL 1 ml IV PUSH ONE (10:00)
[2023-09-27] MEDS ORDERED: Morphine PCA ADULT 5 MG/ML 30 ML PCA SCH (10:00)
[2023-09-27] MEDS ORDERED: Morphine 10 MG/ML VIAL (1 ml) ONE (12:40)
== END 2023-09-27 12:46 | disposition expired | DRG 296 ==
LOC: ED 09:51 → SUATTDRO 11:06 → EDHOLD 11:06 → ICU 11:20
PROVIDERS: ADMIT Surgery Surgical Critical Care; ATTEND Internal Medicine